=== PATIENT | female | born 1990 | race Caucasian/White ===

== ENCOUNTER 2021-08-17 07:29 | Inpatient (IN) | payer SELFPAY ==
[2021-08-17] MEDS ORDERED: AMPICILLIN/NS 2 GM/100 ML 2 GM/100 ML BAG IV SCH (08:00)
[2021-08-17] MEDS ORDERED: AMPICILLIN/NS 2 GM/100 ML 2 GM/100 ML BAG IV ONE (08:06)
[2021-08-17] MEDS ORDERED: LACTATED RINGERS 1,000 ML ONE (08:06)
[2021-08-17] MEDS ORDERED: LACTATED RINGERS 1,000 ML IV SCH (08:30)
[2021-08-17] MEDS ORDERED: ONDANSETRON 4 MG/2 ML INJ IV PRN ×2 (09:00→11:00)
[2021-08-17] MEDS ORDERED: ePHEDrine SULFATE 50 MG/1 ML INJ IV PRN (09:00)
[2021-08-17] MEDS ORDERED: METHYLERGONOVINE MALEATE 0.2 MG/ML VIAL IM PRN (09:00)
[2021-08-17] MEDS ORDERED: LOPERAMIDE 2 MG CAP PO PRN (09:00)
[2021-08-17] MEDS ORDERED: OXYTOCIN DRIP 30 UNITS/500 ML BAG IV SCH (09:00)
[2021-08-17] MEDS ORDERED: MINERAL OIL 30 ML ORAL LIQD PO PRN (09:00)
[2021-08-17] MEDS ORDERED: BUTORPHANOL 2 MG/1 ML INJ IV PRN (09:00)
[2021-08-17] MEDS ORDERED: CARBOPROST TROMETHAMINE 250 MCG/1 ML INJ IM PRN (09:00)
[2021-08-17] MEDS ORDERED: TERBUTALINE 1 MG/1 ML INJ SUB-Q PRN (09:00)
[2021-08-17] MEDS ORDERED: fentaNYL 100 MCG/2 ML INJ IV PRN (09:00)
[2021-08-17] MEDS ORDERED: LIDOCAINE (2%) 20 MG/1 ML VIAL 20 ML MDV INFILTRATI SCH (09:00)
[2021-08-17] MEDS ORDERED: ACETAMINOPHEN 325 MG TAB PO PRN (09:00)
[2021-08-17 10:34] LABS: Hematocrit 36.9 % (30.3-42.9); Hemoglobin 12.2 gm/dl (10.1-14.3); Mean Corpuscular HGB Conc 33 % (30-34); Mean Corpuscular Volume 84 fl (79-97); Platelet Count 299 K/mm3 (140-440); Red Cell Distribution Width 15.2 % (13.2-15.2)
[2021-08-17] MEDS ORDERED: MAGNESIUM HYDROXIDE (MOM) ORAL LIQD UDC PO PRN (11:00)
[2021-08-17] MEDS ORDERED: WITCH HAZEL/ GLYCERIN PAD TP PRN (11:00)
[2021-08-17] MEDS ORDERED: PROMETHAZINE 25 MG RECT SUPP PR PRN (11:00)
[2021-08-17] MEDS ORDERED: diphenhydrAMINE 25 MG CAP PO PRN (11:00)
[2021-08-17] MEDS ORDERED: PROMETHAZINE 25 MG TAB PO PRN (11:00)
[2021-08-17] MEDS ORDERED: LANOLIN/ZINC/DIMETHICONE (LANSINOH) 7 GM TP PRN (11:00)
--- NOTE | 2021-08-17 11:16 | History and Physical Report ---
History of Present Illness Date of examination: 08/17/21 Date of admission: 08/17/21 07:45 Chief complaint: c/o uc times several hours History of present illness: 30 y/o presents to [facility] @ 39.3 wks in active labor. Pt reports uc x several hours. She denies VB or LOF and admits to active FM. Pt initiated her pnc @ [facility] at 32.2 wks and had an uneventful preg. Her 1 hr gtt was 142 but 3 hr gtt was neg. Hx of LGSIL on pap. + GBS. Social/surg hx unremarkable. Family hx of asthma. Pt was admitted to L&D for delivery. 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 smear (gbs pos), other Family/Genetic History: other (asthma) Social history: no significant social history, full code - Obstetrical History Expected Date of Delivery: 08/21/21 Actual Gestation: 39 Week(s) 3 Day(s) : 4 Para: 3 Number of Living Children: 3 Medications and Allergies Allergies Allergy/AdvReac Type Severity Reaction Status Date / Time No Known Allergies Allergy Verified 01/07/15 04:51 Home Medications Medication Instructions Recorded Confirmed Last Taken Type Ibuprofen [Motrin 600 MG tab] 600 mg PO Q6H PRN #30 tablet 01/08/15 Unknown Rx Active Meds: Active Medications Acetaminophen (Acetaminophen 325 Mg Tab) 650 mg PO Q4H PRN PRN Reason: Pain, Mild (1-3) Bisacodyl (Bisacodyl 10 Mg Rect Supp) 10 mg ID BID PRN PRN Reason: Constipation Butorphanol Tartrate (Butorphanol 2 Mg/1 Ml Inj) 1 mg IV Q2H PRN PRN Reason: Pain, Moderate(4-6) LABOR PAIN Carboprost Tromethamine (Carboprost Tromethamine 250 Mcg/1 Ml Inj) 250 mcg IM ONCE PRN PRN Reason: Uterine Bleeding Diphenhydramine HCl (Diphenhydramine 25 Mg Cap) 25 mg PO Q6H PRN PRN Reason: Itching Ephedrine Sulfate (Ephedrine Sulfate 50 Mg/1 Ml Inj) 10 mg IV Q2M PRN PRN Reason: Hypotension Fentanyl (Fentanyl 100 Mcg/2 Ml Inj) 100 mcg IV Q2H PRN PRN Reason: Pain,Severe (7-10) LABOR PAIN Lactated Ringer's (Lactated Ringers) 1,000 mls @ 125 mls/hr IV DIRECT MOON Oxytocin/Sodium Chloride (Pitocin/Ns 30 Unit/500ml) 30 units in 500 mls @ 40 mls/hr IV TITR MOON; Protocol Ampicillin Sodium (Ampicillin/Ns 1 Gm/50 Ml) 1 gm in 50 mls @ 100 mls/hr IV Q4H [facility]; Protocol Ibuprofen (Ibuprofen 600 Mg Tab) 600 mg PO Q6H [facility] Lidocaine (Lidocaine (2%) 20 Mg/1 Ml Vial 20 Ml Mdv) 20 ml INFILTRATI ONCE@0900 [facility] Stop: 08/18/21 08:59 Loperamide HCl (Loperamide 2 Mg Cap) 2 mg PO ONCE PRN PRN Reason: give with Hemabate Magnesium Hydroxide (Magnesium Hydroxide (Mom) Oral Liqd Udc) 30 ml PO HS PRN PRN Reason: Constipation Methylergonovine Maleate (Methylergonovine Maleate 0.2 Mg/Ml Vial) 0.2 mg IM ONCE PRN PRN Reason: Uterine Bleeding Mineral Oil (Mineral Oil 30 Ml Oral Liqd) 30 ml PO QHS PRN PRN Reason: Constipation Multi-Ingredient Ointment (Lanolin/Zinc/Dimethicone (Lansinoh) 7 Gm) 1 applic TP PRN PRN PRN Reason: Sore Nipples Multivitamins/Iron/Calcium ( Aoo10-Ze Fumarate-Folic Acid Vit Tab) 1 each PO QDAY [facility] Ondansetron HCl (Ondansetron 4 Mg/2 Ml Inj) 4 mg IV Q8H PRN PRN Reason: Nausea And Vomiting Ondansetron HCl (Ondansetron 4 Mg/2 Ml Inj) 4 mg IV Q8H PRN PRN Reason: Nausea And Vomiting Oxycodone/Acetaminophen (Oxycodone /Acetaminophen 5-325mg Tab) 1 tab PO Q6H PRN PRN Reason: Pain, Moderate (4-6) Promethazine HCl (Promethazine 25 Mg Rect Supp) 25 mg ID Q6H PRN PRN Reason: Nausea And Vomiting Promethazine HCl (Promethazine 25 Mg Tab) 25 mg PO Q6H PRN PRN Reason: Nausea And Vomiting Sodium Chloride (Sodium Chloride 0.9% 10 Ml Flush Syringe) 10 ml IV PRN NR Terbutaline Sulfate (Terbutaline 1 Mg/1 Ml Inj) 0.25 mg SUB-Q ONCE PRN PRN Reason: Hyperstimulation/Hypertonicity Witch Monae/Glycerin (Witch Monae/ Glycerin Pad) 1 each TP PRN PRN PRN Reason: Hemorrhoid/cleansing/soothing Review of Systems All systems: negative Eyes: deferred Ears, nose, mouth and throat: deferred Genitourinary: normal appearance Rectal Exam: normal exam-external/orifice - Vital Signs Vital signs: Vital Signs Pulse Ox 98 08/17/21 07:45 Temp Pulse Resp BP Pulse Ox 90 98 08/17/21 11:02 08/17/21 11:02 - Physical Exam Breasts: Positive: normal Abdomen: Positive: normal appearance, soft, normal bowel sounds, other (graid) Genitourinary (Female): Positive: normal external genitalia, normal perenium Vulva: both: normal Vagina: Positive: normal moisture Uterus: Positive: enlarged, normal contour, other (gravid) - Obstetrical FHR: auscultation normal Cervical Dilatation: 7 Cervical Effacement Percentage: 80 station: -2 Uterine Contraction Pattern: Regular Uterine Tone Measurement Phase: Resting Uterine Contraction Intensity: Strong/Firm Results Result Diagrams: 08/17/21 09:33 Abnormal lab results 08/17/21 Range/Units 09:33 WBC 11.8 H (4.5-11.0) K/mm3 All other labs normal. Assessment and Plan A: IUP@ 39.3wks Insuff PNC + GBS LGSIL P: Admit to L&D for delivery Continuous monitoring Pain med/Epidural prn GBS protocal Anticipate Offer colpo pp - Patient Problems (1) (normal spontaneous vaginal delivery) Current Visit: Yes Status: Acute
--- NOTE | 2021-08-17 11:37 | Procedure Note ---
OB Delivery Note - Delivery Date of Delivery: 08/17/21 Surgeon: YVROSE ESTRADA Estimated blood loss: 100cc - Vaginal Delivery presentation: vertex Delivery position: OA Intrapartum events: meconium, precipitous labor- <3hr Delivery induction: none Delivery augmentation: rupture of membranes Delivery monitor: external FHT, external uterine Route of delivery: Delivery placenta: spontaneous Delivery cord: 3 umbilical vessels Episiotomy: none Delivery laceration: none Anesthesia: none Delivery comments: of a viable male infant in OA position over an intact perineum. immediately to mom's chest for skin to skin bonding. Delayed cord clamping while nurse bulb suctioned, dried, and stimulated the baby. Cord was clamped x 2 and FOB was guided in cutting the cord. Baby was taken to warmer for an initial asses 8/9. Cord blood was obtained. Spontaneous delivery of an intact placenta with 3CV. FF@U2. Homeostasis was maintained with fundal massage and IV Pitocin. QBL 1OOcc; FW 3130 Gms. Mom and baby was left in stable condition with nurses. - A at 1 minute: 8 at 5 minutes: 9 Gender: Male
[2021-08-17] MEDS ORDERED: AMPICILLIN/NS 1 GM/50 ML 1 GM/50 ML BAG IV SCH (12:00)
[2021-08-17] MEDS: IBUPROFEN 600 MG TAB PO SCH (12:48)
[2021-08-17] MEDS: oxyCODONE /ACETAMINOPHEN 5-325MG TAB PO PRN (21:05)
[2021-08-18 00:53] LABS: Hematocrit 31.8 % (30.3-42.9); Hemoglobin 10.5 gm/dl (10.1-14.3)
[2021-08-18] MEDS: IBUPROFEN 600 MG TAB PO SCH ×3 (02:50→18:02)
[2021-08-18] MEDS: FERROUS SULFATE 325 MG TAB PO SCH ×2 (09:17→22:04)
[2021-08-18] MEDS: PRENATAL VIT27-FE FUMARATE-FOLIC ACID VIT TAB PO SCH (09:17)
--- NOTE | 2021-08-18 11:25 | Progress Note ---
Assessment and Plan A: day 1 S/P . Anemia. P: Supplement with oral iron. Anticipate discharge home tomorrow if patient continues to do well. Subjective - Subjective Date of service: 08/18/21 Principal diagnosis: day 1 S/P Interval history: Temp. recording this morning was a typo per patient's nurse. Nurse states patient had a normal temperature and she will correct this in the patient's record. Patient reports: appetite normal, voiding normally, pain well controlled, flatus, ambulating normally, no dizzy ambulation, no nauseated [place]: doing well Objective - Vital Signs Latest vital signs: Vital Signs Temp Pulse Resp BP Pulse Ox Pulse Ox 08/18/21 08:18 122.0 F H 64 18 111/61 99 08/18/21 08:00 98 08/18/21 02:50 18 08/18/21 01:21 98.0 F 66 20 99/63 98 08/17/21 22:20 98 08/17/21 21:05 18 08/17/21 21:04 98.6 F 67 18 113/67 98 08/17/21 14:53 97.9 F 71 17 99/55 98 08/17/21 12:30 98 08/17/21 11:57 83 98 08/17/21 11:52 70 98 08/17/21 11:49 69 112/67 08/17/21 11:47 84 97 08/17/21 11:42 79 99 08/17/21 11:37 74 97 08/17/21 11:36 74 111/62 08/17/21 11:32 78 98 08/17/21 11:27 71 98 Intake and Output 08/17/21 08/18/21 08/18/21 23:59 07:59 15:59 Intake Total 360 360 Output Total 1100 Balance -740 360 Intake: Oral 120 120 Intake, Free Water 240 240 Output: Urine 1100 Void 1100 Other: Total, Intake Amount 120 120 Total, Output Amount 900 # Voids Void 1 1 - Exam Cardiovascular: Present: Regular rate Lungs: Present: Clear to auscultation Abdomen: Present: normal appearance, soft, normal bowel sounds. Absent: distent ion, tenderness, guarding, rigidity Uterus: Present: normal, firm, fundal height below umbilicus. Absent: bogginess, tenderness Extremities: Absent: tenderness
[2021-08-19] MEDS: IBUPROFEN 600 MG TAB PO SCH ×2 (04:48→16:40)
--- NOTE | 2021-08-19 07:21 | Progress Note ---
Assessment and Plan A: day 2 S/P . Anemia. P: Discharge patient home today. Discussed with patient discharge instructions and warning signs. Advised patient to continue taking her vitamin and iron supplements at home. Advised patient to avoid lifting, intercourse, housework. Advised patient to follow up at [facility] clinic in 2 weeks. Patient voiced understanding of instructions. Subjective - Subjective Date of service: 08/19/21 Principal diagnosis: day 2 S/P Interval history: Patient requests discharge today. Patient reports: appetite normal, voiding normally, pain well controlled, flatus, ambulating normally, no dizzy ambulation, no nauseated : doing well Objective - Vital Signs Latest vital signs: Vital Signs Temp Pulse Resp BP Pulse Ox Pulse Ox 08/19/21 04:48 18 08/19/21 01:17 97.6 F 71 18 112/76 97 08/18/21 20:20 98 08/18/21 17:07 98.6 F 80 18 105/76 98 08/18/21 12:52 98.1 F 81 18 115/75 98 08/18/21 08:18 122.0 F H 64 18 111/61 99 08/18/21 08:00 98 Intake and Output 08/18/21 08/18/21 08/19/21 15:59 23:59 07:59 Intake Total 120 120 Balance 120 120 Intake: Oral 120 120 Other: Total, Intake Amount 120 120 # Voids Void 1 1 - Exam Cardiovascular: Present: Regular rate Lungs: Present: Clear to auscultation Abdomen: Present: normal appearance, soft. Absent: distention, tenderness, guarding, rigidity Uterus: Present: normal, firm, fundal height below umbilicus. Absent: bog giness, tenderness Extremities: Absent: tenderness
--- NOTE | 2021-08-19 07:24 | Discharge Summary ---
Providers - Providers Date of Admission: 08/17/21 07:45 Date of discharge: 08/19/21 Attending physician: MELIZA DEL CASTILLO Primary care physician: MELIZA DEL CASTILLO Hospitalization Reason for admission: active labor Delivery: Laceration: none Other procedures: none complications: none Discharge diagnosis: IUP at term delivered [place] baby: male Pertinent studies: Labs Hospital course: Stable hospital course Condition at discharge: Good Disposition: 01 HOME / SELF CARE / HOMELESS - Discharge Diagnoses (1) Term delivered Status: Acute (2) Anemia Status: Acute Plan - Provider Discharge Summary Activity: routine, no sex for 6 weeks, no heavy lifting 4 weeks, no strenuous exercise Diet: routine Instructions: routine Additional instructions: Continue taking your vitamin and iron supplements at home. Follow up at [facility] clinic in 2 weeks. Call your doctor immediately for: * Fever > 100.5 * Heavy vaginal bleeding ( >1 pad per hour) * Severe persistent headache * Shortness of breath * Reddened, hot, painful area to leg or breast - Follow up plan Follow up: [facility] [Referring] - 14 Days
[2021-08-19] MEDS: PRENATAL VIT27-FE FUMARATE-FOLIC ACID VIT TAB PO SCH (10:50)
[2021-08-19] MEDS: FERROUS SULFATE 325 MG TAB PO SCH (10:50)
[2021-08-19] MEDS: oxyCODONE /ACETAMINOPHEN 5-325MG TAB PO PRN (15:46)
[2021-08-19 17:04] VITALS: BP 118/68
== END 2021-08-19 18:10 | disposition home or self-care (01) | DRG 807 ==
LOC: TRG 07:29 → APU 07:30 → LD 07:45 → TRG 07:51 → OB 12:18
PROVIDERS: ADMIT Obstetrics & Gynecology; ATTEND Obstetrics & Gynecology
PROC: 10E0XZZ Delivery of Products of Conception, External Approach (ICD-10-PCS; principal; 2021-08-17)
DX: O77.0 Labor and delivery complicated by meconium in amniotic fluid (principal); Z37.0 Single live birth; O99.824 Streptococcus B carrier state complicating childbirth; Z3A.39 39 weeks gestation of pregnancy; O62.3 Precipitate labor; O90.81 Anemia of the puerperium; Z20.822 Contact with and (suspected) exposure to COVID-19
CPT/HCPCS: 36415; 85014; 85018; 85027; 86850; 86900; 86901; G0378; U0003